=== PATIENT | female | born 1985 | race Two or more races ===

== ENCOUNTER 2023-08-26 11:58 | Emergency (ER) | payer MEDICAID, OTHER, SELFPAY ==
--- NOTE | 2023-08-26 12:29 | ED_ITS ---
HPI - General Adult General Chief complaint: Abdominal Pain Stated complaint: abd pain sent, by Time Seen by Provider: 08/26/23 22:23 Source: patient Mode of arrival: ambulatory Limitations: language barrier (Mohawk-speaking medical record specialist utilized) History of Present Illness HPI narrative: Patient is a 37 year old female who presents emergency department for evaluation of left upper quadrant abdominal pain x3 days. The pain has been constant and is described as a sharp stabbing pain. She is able to tolerate oral fluids without complication, when she tries to consume solids she soon after develops worsening pain vomiting and diarrhea. She denies hematemesis, coffee-ground emesis, hematochezia, melena. She reports a history of similar pain in the past, she was advised that she had gallstones, this was when she was in [facility], approximately 2 years ago, but she never was able to have follow-up regarding this. She denies fevers, chills, sick contacts, chest pain, shortness of breath, lower abdominal pain, genitourinary symptoms. Related Data Previous Rx's Medication Instructions Recorded aluminum-mag hydroxide-simethicone 10 ml PO QID PRN dyspepsia #3,000 08/26/23 200 mg-200 mg-20 mg/5 mL oral susp mL (Maalox Advanced) famotidine 20 mg tablet 20 mg PO DAILY #14 tabs 08/26/23 Allergies Allergy/AdvReac Type Severity Reaction Status Date / Time No Known Allergies Allergy Verified 08/26/23 12:30 Review of Systems 2 Review of Systems: Yes all other systems are reviewed and are negative PMFSH Past Medical History Attestation statement: The following information was validated with the patient. Source: old records reviewed Social History Social History Advance Directives: No Advance Directives Information Provided: Yes Physical Exam ED Vital Signs: Vital Signs - 24 hr 08/26/23 12:32 08/26/23 23:08 Temperature 97 F 98.8 F Pulse Rate 65 71 Respiratory Rate 16 18 Blood Pressure 121/72 Pulse Oximetry 100 99 Oxygen Delivery Method Room Air Room Air BMI result Body Mass Index 36.1 Appearance: Alert.?Oriented to person, place and time. No acute distress.?Normal affect. Eyes: Pupils equal, round and reactive to light.? ENT: Pharynx normal.?? Neck: Normal inspection.? Neck supple.?? CVS: Heart sounds normal. Normal heart rate and rhythm.? Pulses normal.?? Respiratory: No respiratory distress.? Lung sounds clear to auscultation bilaterally?? Abdomen: Soft with left upper quadrant tenderness upon palpation, no rigidity, no guarding, negative Saba sign, no rebound tenderness. Normoactive bowel sounds. ? Skin: Skin warm and dry.? Normal skin color.? Extremities: No lower extremity edema.? Neuro: Moves all extremities spontaneously. Sensation intact bilaterally.Ambulates with normal steady gait. Course Course Course Narrative: RME performed by Tran Scruggs PA-C. Patient is a 37 year old assigned female at presenting to the emergency department with abdominal pain. Labs ordered. Patient placed back in the waiting room pending room availability and results. Reevaluation(s) Reevaluation #1: Patient reports improvement in symptoms after GI cocktail, she is requesting discharge home at this time. She declines having an oral solid food trial. Reviewed worrisome signs and symptoms that would warrant re-evaluation in the emergency department. Outpatient follow-up with PCP. Sent prescription for famotidine and Maalox to pharmacy, for management of gastritis be GERD, she is stable for discharge. Time: 23:31 Medications Administered Discontinued Medications Generic Name Dose Route Start Last Admin Trade Name Freq PRN Reason Stop Dose Admin Al Hydroxide/Mg Hydroxide 30 ml 08/26/23 22:38 08/26/23 22:55 Magnesium Hydrox/Alum Hydrox 30 Ml Oral.Susp PO 08/26/23 22:39 30 ml ONCE ONE Administration Famotidine 20 mg 08/26/23 22:38 08/26/23 22:55 Famotidine 20 Mg Tablet PO 08/26/23 22:39 20 mg ONCE ONE Administration Lidocaine HCl 15 ml 08/26/23 22:38 08/26/23 22:55 Lidocaine Hcl Viscous 2 % 15 Ml Solution MUCOUS MEM 08/26/23 22:39 15 ml ONCE ONE Administration Medical Decision Making Medical Decision Making MDM Narrative: Patient is a 37-year-old female past medical history of cholelithiasis presenting to emergency department for evaluation of left upper quadrant abdominal pain with associated vomiting and diarrhea after eating solid foods for the past 3 days. She does have notable left upper quadrant tenderness upon palpation there is however no rigidity or guarding, epigastric region and right upper quadrant is without tenderness in her lower abdominal is benign. Overall she is well-appearing, nontoxic, afebrile, without tachycardia. I reviewed labs obtained prior to my assumption of care, CBC is without leukocytosis or anemia. CMP is overall unremarkable. HCG is negative. Urinalysis is without evidence of infection or microscopic hematuria. Influenza and COVID-19 testing is negative. Lipase was not initially obtained, I will attempt to add this on though it may be too late given the timing of her initial labs. I discussed plan of care with patient, given her history of cholelithiasis I do think that it would be beneficial to evaluate lipase in addition to abdominal ultrasound versus CT, at this time she would like to defer imaging as she has been here for a long time needs to get home as she has work in the morning and she cannot message. Will trial a GI cocktail for symptomatic relief at this time. Differential Diagnosis Differential Diagnoses: The differential diagnosis associated with the presentation includes (Cholelithiasis, cholecystitis, pancreatitis, gastritis, GERD, PUD) Lab Data MDM Lab Attestation statement: I reviewed the patient's lab results. (As noted above) 08/26/23 13:04 08/26/23 13:04 Labs: Lab Results 08/26/23 08/26/23 Range/Units 13:04 14:11 WBC 8.1 (4.8-10.8) X10*3/uL RBC 4.74 (4.20-5.50) X10*6/uL Hgb 13.2 (12.0-16.0) g/dl Hct 40.4 (37.0-47.0) % MCV 85.2 (80.0-98.0) fL MCH 27.8 (27.0-33.0) pg MCHC 32.7 (31.0-35.0) g/dl RDW 13.1 (11.0-16.0) % Plt Count 305 (160-400) X10*3/uL MPV 9.8 (9.4-12.3) fL Immature Gran % (Auto) 0.2 (0.0-0.4) % Neut % (Auto) 55.5 (45-73) % Lymph % (Auto) 35.2 (20-40) % [place] % (Auto) 7.0 (2-11) % Eos % (Auto) 1.7 (0-4) % Baso % (Auto) 0.4 (0-2) % Lymph # (Auto) 2.8 (1.2-4.9) X10*3/uL [place] # (Auto) 0.6 (0.1-1.2) X10*3/uL Eos # (Auto) 0.1 (0.0-0.4) X10*3/uL Baso # (Auto) 0.0 (0.0-0.2) X10*3/uL Abs Immat Gran (auto) 0.02 (0.00-0.03) X10*3/uL Absolute Neuts (auto) 4.5 (2.0-8.3) x10*3/uL Absolute Nucleated RBC 0.000 (0.0-0.012) X10*3/uL Nucleated RBC % (auto) 0.0 (0.0-0.2) /100WBC Sodium 139 (135-145) mmol/L Potassium 3.7 (3.3-5.1) mmol/L Chloride 105 (96-108) mmol/L Carbon Dioxide 24 (22-29) mmol/L Anion Gap 14 (12-20) BUN 9 (9-16) mg/dL Creatinine 0.68 (0.5-1.4) mg/dL Estim Creat Clear Calc 129.3 Estimated GFR > 60 Random Glucose 84 (60-115) mg/dL Calcium 9.8 (8.4-10.2) mg/dL Magnesium 2.0 (1.6-2.6) mg/dL Total Bilirubin 0.3 (0.0-1.0) mg/dL AST 19 (5-31) U/L ALT 18 (0-31) U/L Alkaline Phosphatase 78 (39-117) U/L Total Protein 8.7 H (6.5-8.0) g/dL Albumin 4.5 (3.5-5.0) g/dL Lipase 24 (8-78) U/L Beta HCG, Quant < 2 mIU/mL Urine Color Yellow Urine Appearance Clear Urine pH 6.0 (5.0-9.0) Ur Specific [place] 1.025 (1.005-1.025) Urine Protein Negative (Neg-Trace) mg/dL Urine Glucose (UA) Negative (Negative) mg/dL Urine Ketones Negative (Negative) mg/dL Urine Blood Negative (Negative) Urine Nitrite Negative (Negative) Ur Leukocyte Esterase Negative (Negative) Influenza Type A (PCR) NEGATIVE (Negative) Influenza Type B (PCR) NEGATIVE (Negative) RSV RNA Qual (PCR) NEGATIVE (Negative) SARS-CoV-2 RNA (RT-PCR) NEGATIVE (Negative) Discharge Plan Discharge Clinical Impression: Abdominal pain Patient Disposition: Home, Self-Care Additional Instructions: As discussed, it was recommended that you have imaging of your abdomen while you were in the emergency department however you declined. You had improvement with the medication that you receive while you were here. I have sent a prescription for these medications to your pharmacy. Please take them as prescribed. Contact your primary care provider to arrange for a follow-up visit within 1-3 days. You may return back to the emergency department any new or worsening symptoms or concerns. Prescriptions: New famotidine 20 mg tablet 20 mg PO DAILY Qty: 14 0RF alum-mag hydroxide-simeth [Maalox Advanced] 200-200-20 mg/5 mL suspension 10 ml PO QID PRN (Reason: dyspepsia) Qty: 3000 0RF Rx Instructions: administer between meals and at bedtime
[2023-08-26 12:32] VITALS: PULSE 65; RESP 16; TEMP 36.1; O2SAT 100; BMI 36.1
[2023-08-26 13:09] LABS: MANUAL DIFF FLAG NO
[2023-08-26 13:12] LABS: Appearance Urine Clear; Basophils Percent Auto 0.4 % (0-2); Color Urine Yellow; Eosinophils Absolute Auto 0.1 X10*3/uL (0.0-0.4); Eosinophils Percent Auto 1.7 % (0-4); Glucose Urine UA Negative (Negative); Hematocrit 40.4 % (37.0-47.0); Hemoglobin 13.2 g/dl (12.0-16.0); Imm Gran Abs Auto 0.02 X10*3/uL (0.00-0.03); Imm Gran Pct Auto 0.2 % (0.0-0.4); Leukocyte Esterase Urine Negative (Negative); Lymphocytes Absolute Auto 2.8 X10*3/uL (1.2-4.9); Lymphocytes Percent Auto 35.2 % (20-40); Mean Corpuscular HGB Conc 32.7 g/dl (31.0-35.0); Mean Corpuscular Hemoglobin 27.8 pg (27.0-33.0); Mean Corpuscular Volume 85.2 fL (80.0-98.0); Mean Platelet Volume 9.8 fL (9.4-12.3); Monocytes Absolute Auto 0.6 X10*3/uL (0.1-1.2); Neutrophils Absolute Auto 4.5 x10*3/uL (2.0-8.3); Neutrophils Percent Auto 55.5 % (45-73); Nitrite Urine Negative (Negative); Platelet Count 305 X10*3/uL (160-400); Red Blood Count 4.74 X10*6/uL (4.20-5.50); Red Cell Distribution Width 13.1 % (11.0-16.0); Specific Gravity - Urine 1.025 (1.005-1.025); Urine Blood Negative (Negative); Urine Ketones Negative (Negative); Urine Protein Negative (Neg-Trace); White Blood Count 8.1 X10*3/uL (4.8-10.8)
[2023-08-26 13:33] LABS: Alanine Aminotransferase 18 U/L (0-31); Albumin Level 4.5 g/dL (3.5-5.0); Alkaline Phosphatase 78 U/L (39-117); Anion Gap 14 (12-20); Aspartate Amino Transferase 19 U/L (5-31); Bilirubin Total 0.3 mg/dL (0.0-1.0); Blood Urea Nitrogen 9 mg/dL (9-16); Calcium 9.8 mg/dL (8.4-10.2); Carbon Dioxide 24 mmol/L (22-29); Chloride 105 mmol/L (96-108); Creatinine Clr Calc Pharmacy 129.3; Estimated Glomerular Filt Rate > 60; Glucose Random 84 mg/dL (60-115); Potassium 3.7 mmol/L (3.3-5.1); Sodium 139 mmol/L (135-145); Total Protein 8.7 g/dL (6.5-8.0)
[2023-08-26 13:50] LABS: HCG Quantitative < 2 mIU/mL
[2023-08-26 14:58] LABS: Influenza A PCR NEGATIVE (Negative); Influenza B PCR NEGATIVE (Negative); Resp Syncy Virus RNA Qual PCR NEGATIVE (Negative); SARS COV2 PCR INHOUSE NEGATIVE (Negative)
[2023-08-26] MEDS: Famotidine 20 MG TABLET PO (22:55)
[2023-08-26] MEDS: Lidocaine HCl Viscous 2 % 15 ML SOLUTION MUCOUS MEM (22:55)
[2023-08-26] MEDS: Magnesium Hydrox/Alum Hydrox 30 ML ORAL.SUSP PO (22:55)
--- NOTE | 2023-08-26 22:57 | PC.NURSE ---
pt a&o,no sob or chest pain, medicated per jan, Notified ALEKSANDR Wilson
[2023-08-26 23:01] LABS: Lipase 24 U/L (8-78)
[2023-08-26 23:08] VITALS: BP 121/72; PULSE 71; RESP 18; TEMP 37.1; O2SAT 99
[2023-08-26 23:43] VITALS: BP 121/82; PULSE 82; RESP 16; O2SAT 98
== END 2023-08-27 01:00 | disposition home or self-care (01) ==
PROVIDERS: Nurse Practitioner Family; Physician Assistant Medical; Emergency Provider Emergency Medicine
DX: R10.12 Left upper quadrant pain (principal); R11.2 Nausea with vomiting, unspecified; R19.7 Diarrhea, unspecified; Z20.822 Contact with and (suspected) exposure to COVID-19; Z20.828 Contact with and (suspected) exposure to other viral communicable diseases; Z79.899 Other long term (current) drug therapy
CPT/HCPCS: 0241U; 36415; 80053; 81003; 83690; 83735; 84702; 85025; 99283; 99284

== ENCOUNTER 2025-07-29 15:16 | Emergency (ER) | payer MEDICAID, OTHER, SELFPAY ==
--- NOTE | ~2025-07-29 | XR_ITS ---
EXAMINATION: XR WRIST, LEFT CLINICAL INFORMATION: pain COMPARISON: None available. TECHNIQUE: PA, lateral, oblique, and scaphoid views of the left wrist. FINDINGS: No degenerative changes are evident. No fracture line is seen. There is no joint diastases. XR/XR wrist LT min 3V IMPRESSION: Unremarkable left wrist. Electronically signed by: Ignacio Bran MD 07/29/2025 04:24 PM EDT
[2025-07-29 16:02] VITALS: BP 174/89; PULSE 78; RESP 18; TEMP 36.2; O2SAT 100; BMI 39.2
--- NOTE | 2025-07-29 16:04 | ED.GENADULT ---
HPI - General Adult General Chief complaint: General Medical Stated complaint: left hand pain, left eye and jaw irritation Time Seen by Provider: 07/29/25 18:52 Source: patient Mode of arrival: ambulatory Limitations: no limitations History of Present Illness ED Provider: Dr. Tate [facility] narrative: This is a 39-year-old female presented hospital today for evaluation of swollen of the left periorbital area and left wrist pain. The patient has pain on ulnar deviation of the left wrist. I suspect she likely has tendonitis. Patient is have swelling of the left periorbital area. She stated it has been more red denies any vision change. Denies any fever. Related Data Previous Rx's ?Medication ?Instructions ?Recorded aluminum-mag hydroxide-simethicone 10 ml PO QID PRN dyspepsia #3,000 08/26/23 200 mg-200 mg-20 mg/5 mL oral susp mL (Maalox Advanced) famotidine 20 mg tablet 20 mg PO DAILY #14 tabs 08/26/23 doxycycline hyclate 100 mg capsule 100 mg PO BID 7 days #14 caps 07/29/25 lidocaine 5 % topical patch 1 patch topical DAILY #15 ea 07/29/25 naproxen 250 mg tablet 250 mg PO BID 5 days #10 tabs 07/29/25 Allergies Allergy/AdvReac Type Severity Reaction Status Date / Time No Known Allergies Allergy Verified 07/29/25 16:06 Review of Systems Review of Systems: Pertinent review of systems as mentioned in HPI. All other system otherwise negative. [facility] Past Medical History [facility] Narrative: Medical history as mentioned in [facility] Social History Social History Advance Directives: No Advance Directives Information Provided: Yes Do you have a plan to hurt others: No Plan Physical Exam ED Exam Exam: General: Pleasant, no distress, interacting appropriately Head: Normacephalic, atraumatic, left periorbital erythema appreciate on exam, no vision involvement Extremities: Tenderness on the radial aspect of the left wrist. CMS intact full range of motion intact, he has tenderness on ulnar deviation. Neurological: Awake and alert, no facial droop noted Skin: Warm and dry Psychiatric: Appropriate mood and thoughts Vital Signs: Vital Signs - 24 hr 07/29/25 16:02 Temperature 97.2 F Pulse Rate 78 Respiratory Rate 18 Blood Pressure 174/89 H Pulse Oximetry 100 Oxygen Delivery Method Room Air BMI result Body Mass Index 39.2 Course Course Course Narrative: This is an RME: Additional HPI, ROS, PE not included below will be deferred to primary provider. RME assessment and note performed by: Lisa Calvert PA-C This is a [id number] who presents to the ER with complaints of left sided facial swelling/itchiness since yesterday. No SOB. Slight erytehema and edema noted to left side of face. Reports left wrist pain as well. Plan: xray wrist Medical Decision Making Medical Decision Making MDM Narrative: 39-year-old female presented hospital today for evaluation of left wrist pain. She did have left periorbital cellulitis. We will plan to start patient on doxycycline. We will also plan to discharge patient we will conservative treatment for her left wrist tendonitis. Patient's x-ray is negative for any signs of fracture. Encouraged NSAID usage. We will plan to prescribe some lidocaine patch for the patient as well. licensed and certified midwife was used for counter she agrees and understands this plan. Differential Diagnosis Differential Diagnoses: The differential diagnosis associated with the presentation includes Periorbital cellulitis, to [place] and tendonitis, cellulitis, orbital cellulitis Independent Interpretation I performed an independent interpretation of an: Plain X-Ray Radiology Impression Discussion of test interpretation with radiology: I have reviewed the radiologist's reading. Discharge Plan Discharge Clinical Impression: Tendinitis, de Quervain's Cellulitis, periorbital Qualifiers: Laterality: left Qualified Code(s): L03.213 - Periorbital cellulitis Patient Disposition: Home, Self-Care Prescriptions: New doxycycline hyclate 100 mg capsule 100 mg PO BID 7 Days Qty: 14 0RF lidocaine 5 % adhesive patch,medicated 1 patch topical DAILY Qty: 15 0RF Rx Instructions: leave on most painful area for up to 12 hrs naproxen 250 mg tablet 250 mg PO BID 5 Days Qty: 10 0RF No Action famotidine 20 mg tablet 20 mg PO DAILY Qty: 14 0RF alum-mag hydroxide-simeth [Maalox Advanced] 200-200-20 mg/5 mL suspension 10 ml PO QID PRN (Reason: dyspepsia) Qty: 3000 0RF Rx Instructions: administer between meals and at bedtime Print Language: South Sudanese
--- OUTSIDE RECORDS SUMMARY | 2025-07-29 20:05 | XMS_ITS | Clinical Summary ---
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 Name Role Phone Unavailable Primary Care Provider Unavailabl e Allergies No known active allergies Medications No known medications Active Problems Problem Noted Date Diagnosed Date Alveolitis of jaw, right 09/24/2024 Severe dental caries 09/16/2024 Non-restorable tooth 09/16/2024 Social History Tobacco Use Types Packs/Day Years Used Date Smoking Tobacco: Never Smokeless Tobacco: Never Tobacco Cessation:Counseling Given: Not Answered Alcohol Use Standard Drinks/Week Comments Never 0 (1 standard drink = 0.6 oz pur e alcohol) Comments Unknown Sex and Gender Information Value Date Recorded Sex Assigned at Female 08/26/2023 10:18 AM EDT Legal Sex Female 9:55 AM EDT Gender Identity Female 08/26/2023 10:18 AM EDT Sexual Orientation Straight 08/26/2023 10 :18 AM EDT Last Filed Vital Signs Vital Sign Reading Time Taken Comments Blood Pressure 124/78 09/16/2024 1:04 PM EST Pulse 69 08/26/2023 11:10 AM EDT Temperature 36.7 C (98 F) 08/26/2023 11:10 AM EDT Respiratory Rate 17 08/26/2023 11:10 AM EDT Oxygen Saturation 98% 08/26/2023 11:10 AM EDT Inhaled Oxygen Concentration - - Weight 97.7 kg (215 lb 6.4 oz) 08/26/2023 11:10 AM EDT Height - - Body Mass Index - - Plan of Treatment Health Maintenance Due Date Last Done Comments Dental Oral Exam 1986 Dental Prophylaxis 1986 Dental X-Ray: Full Mouth 1986 Depression Screening 1986 HIV Screening 1986 SDOH Screening 1986 Disability Screening 1986 Alcohol/Substance Use Screening 1998 Family Planning (PISQ) 2001 HPV Vaccines (1 - 3-dose series) 2001 Hepatitis C Screening 2004 DTaP/Tdap/Td Vaccines (1 - Tdap) 2005 Hepatitis B Vaccines (1 of 3 - 19+ 3-dose series) 2005 Pap Smear 2007 Cervical Cancer Screening 2016 HPV/Cotest 2016 COVID-19 Vaccine (1 - 2023-2 5 season) 2025 Influenza Vaccine (#1) 2025 Dental X-Ray: Bitewings 09/03/2025 09/02/2024 Tobacco Screening 09/24/2025 09/24/2024 Zoster Vaccines (1 of 2) 2036 RSV Patients and Pa tients Aged 60 years or older (1 - 1-dose 75+ series) 2061 HIB Vaccines Aged Out No longer eligi ble based on patient's age to complete this topic Hepatitis A Vaccines Aged Out No long er eligible based on patient's age to complete this topic IPV Vaccines Aged Out No longer eligi ble based on patient's age to complete this topic Meningococcal B Vaccine Aged Out No l onger eligible based on patient's age to complete this topic Meningococcal Vaccine Aged Out No toño enriqueta eligible based on patient's age to complete this topic Pneumococcal Vaccine: Pediat rics (0 to 5 Years) and At-Risk Patients (6 to 49) Years Aged Out No longer eligi ble based on patient's age to complete this topic RSV under 20 months Aged Out No longe r eligible based on patient's age to complete this topic Rotavirus Vaccines Aged Out No longer eligible based on patient's age to complete this topic Procedures Procedure Name Priority Date/Time Associated Diagnosis Comments BITEWING - SINGLE RADIOGRAPHIC IMAGE Routine 09/02/2024 3:55 PM EDT from Last 3 Months or Most Recently Relevant to Health Maintenance Insurance [place] F[place] DENTAL-[facility] MEDICAID LIMITED ADULT DENTAL - HSN FULL (MEDICAID)
[2025-07-29 20:20] VITALS: BP 159/88; PULSE 73; RESP 17; TEMP 36.2; O2SAT 100
== END 2025-07-29 20:20 | disposition home or self-care (01) ==
PROVIDERS: Emergency Provider Student in an Organized Health Care Education/Training Program
DX: L03.213 Periorbital cellulitis (principal); M79.672 Pain in left foot; H57.12 Ocular pain, left eye
CPT/HCPCS: 73110; 99283; 99284

== ENCOUNTER → 2025-07-29 16:05 | Outpatient (BNV) | payer MEDICAID, SELFPAY | PROVIDERS: Visit Provider Radiology Diagnostic Radiology | DX: M25.532 Pain in left wrist (principal) | CPT/HCPCS: 73110 ==